=== PATIENT | male | born 1940 | race Caucasian/White ===

== ENCOUNTER → 2020-06-16 | Outpatient (CLI) | payer MEDICARE, OTHER ==
[~2020-06-16] MED LIST: ASP81CT PO; ATRV10T PO; DXZS4T PO; FOSI10TA3 PO; NEBI5TAB8 PO; OMEG1CAP24 PO
--- NOTE | 2020-06-16 11:22 | Diagnostic Imaging Report ---
PROCEDURE: US Scrotum. TECHNIQUE: Multiple real-time grayscale images were obtained over the scrotum in various projections bilaterally. INDICATION: Right spermatocele. FINDINGS: Right testicle measures 5.0 x 2.6 x 3.9 cm and the left testicle measures 3.8 x 1.6 x 2.3 cm. Numerous testicular cystic masses are identified. Largest cyst on the right approximately 1.6 x 1.8 cm. Cyst on the left measures approximately 1.6 x 1.1 cm. No definite solid testicular mass is identified. There is blood flow to testes. There is a right epididymal head cyst approximately 2 cm in size. Left epididymis is unremarkable. There is a small right hydrocele. No left hydrocele is seen. There is no varicocele. IMPRESSION: 1. Bilateral cystic testicular masses. No solid testicular mass or vascular compromise is identified. 2. Right epididymal head cyst. 3. Small right hydrocele. Dictated by: Dictated on workstation # [id number]
== END ==
LOC: RAD 10:13
PROVIDERS: ATTEND Urology
DX: N44.2 Benign cyst of testis (principal); N50.3 Cyst of epididymis; N43.3 Hydrocele, unspecified; N43.40 Spermatocele of epididymis, unspecified
CPT/HCPCS: 76870